=== PATIENT | female | born 1970 ===

== ENCOUNTER 2021-09-24 12:45 | Inpatient (IN) | payer OTHER ==
[~2021-09-24] VITALS: Ht 162.6 cm; Wt 62.1 kg
[2021-09-25] MEDS ORDERED: METFOR PO (08:13)
[2021-09-25] MEDS ORDERED: [UNRECOGNIZED DRUG - CODE] PO (08:14)
[2021-09-25] MEDS ORDERED: ACID REDUCER20 M1 PO (08:16)
[2021-09-25] MEDS ORDERED: PREDISONE PO (08:16)
[2021-09-25] MEDS ORDERED: FOLIC A PO (08:17)
[2021-09-25] MEDS ORDERED: GLUMETZA500 MG PO (08:17)
[2021-09-27] MEDS ORDERED: FENTANYL1 EAC4 (07:39)
[2021-09-27] MEDS ORDERED: KETOROLAC TROME10 MG (07:39)
[2021-09-27] MEDS ORDERED: RAYOS5 MG PO (07:40)
[2021-09-27] MEDS ORDERED: FOLIC ACID1 MG (07:40)
[2021-09-27] MEDS ORDERED: FAMOTIDINE20 MG (07:40)
== END 2021-09-29 16:04 | disposition home or self-care (01) | DRG 336 ==
LOC: O/R 09-27 06:12 → OB/GYN 09-27 06:12
PROVIDERS: ADMIT Specialist; ATTEND Specialist
PROC: 0TN60ZZ Release Right Ureter, Open Approach (ICD-10-PCS; 2021-09-27)
PROC: 0UT00ZZ Resection of Right Ovary, Open Approach (ICD-10-PCS; 2021-09-27)
PROC: 0UT50ZZ Resection of Right Fallopian Tube, Open Approach (ICD-10-PCS; 2021-09-27)
PROC: 0UB00ZZ Excision of Right Ovary, Open Approach (ICD-10-PCS; 2021-09-27)
PROC: 3E1M38Z Irrigation of Peritoneal Cavity using Irrigating Substance, Percutaneous Approach (ICD-10-PCS; 2021-09-27)
PROC: 0DNW0ZZ Release Peritoneum, Open Approach (ICD-10-PCS; principal; 2021-09-27 07:00)
DX: C18.8 Malignant neoplasm of overlapping sites of colon (principal); C79.61 Secondary malignant neoplasm of right ovary; C79.82 Secondary malignant neoplasm of genital organs; C79.89 Secondary malignant neoplasm of other specified sites; Z20.822 Contact with and (suspected) exposure to COVID-19